=== PATIENT | male | born 1980 | race Caucasian/White ===

== ENCOUNTER 2017-08-30 11:16 | Inpatient (IN) | payer SELFPAY ==
[2017-08-30 12:39] LABS: ABSOLUTE BASOPHILS # (AUTO) 0.1 10^3/uL (0.0-0.2); ABSOLUTE EOSINOPHILS # (AUTO) 0.3 10^3/uL (0.0-0.6); ABSOLUTE LYMPHOCYTES (AUTO) 1.3 10^3/uL (0.5-4.7); ABSOLUTE MONOCYTES (AUTO) 0.8 10^3/uL (0.1-1.4); ABSOLUTE NEUT (AUTO) 9.3 10^3/uL (1.7-8.2); BASOPHILS % (AUTO) 0.6 % (0-2); EOSINOPHILS % (AUTO) 2.2 % (0-6); HEMATOCRIT 30.5 % (37.9-51.0); HEMOGLOBIN 10.2 g/dL (13.5-17.0); LYMPHOCYTES % (AUTO) 10.9 % (13-45); MEAN CORPUSCULAR HEMOGLOBIN 29.7 pg (27.0-33.4); MEAN CORPUSCULAR HGB CONC 33.4 g/dL (32.0-36.0); MEAN CORPUSCULAR VOLUME 89 fl (80-97); MONOCYTES % (AUTO) 6.9 % (3-13); PLATELET COUNT 431 10^3/uL (150-450); RED BLOOD COUNT 3.43 10^6/uL (4.35-5.55); RED CELL DISTRIBUTION WIDTH 13.4 % (11.5-14.0); SEGMENTED NEUTROPHILS % (AUTO) 79.4 % (42-78); TOTAL CELLS COUNTED % (AUTO) 100 %; WHITE BLOOD COUNT 11.7 10^3/uL (4.0-10.5)
--- NOTE | 2017-08-30 13:11 | RADIOLOGY REPORT (SQ) ---
EXAM DESCRIPTION: FOOT RIGHT COMPLETE COMPLETED DATE/TIME: 08/30/2017 12:52 pm REASON FOR STUDY: swelling pain COMPARISON: None. NUMBER OF VIEWS: Three views. TECHNIQUE: AP, lateral and oblique radiographic images acquired of the right foot. LIMITATIONS: None. FINDINGS: MINERALIZATION: Normal. BONES: There is a transverse fracture of the mid 5th metatarsal. There is cortical irregularity invo lving the proximal ends of the 2nd 3rd and 4th metatarsal suspicious for fractures. JOINTS: No effusions. SOFT TISSUES: No soft tissue swelling. No foreign body. OTHER: No other significant finding. IMPRESSION: Transverse fracture of the mid 5th metatarsal. There is cortical irregularity involving the proximal ends of the 2nd 3rd and 4th metatarsal suspicious for fractures. Clinical correlation is recommended. Other findings as noted above. TECHNICAL DOCUMENTATION: JOB ID: [id number] [employer]- All Rights Reserved Reading location - IP/workstation name: [email or web address]
[2017-08-30 14:17] LABS: ANION GAP 15 (5-19); BLOOD UREA NITROGEN 40 mg/dL (7-20); CALCIUM 9.3 mg/dL (8.4-10.2); CARBON DIOXIDE 16 mmol/L (22-30); CHLORIDE 110 mmol/L (98-107); GLUCOSE 140 mg/dL (75-110); SODIUM 140.7 mmol/L (137-145); URIC ACID 5.7 mg/dL (3.5-8.5)
[2017-08-30 14:23] LABS: POTASSIUM 7.5 mmol/L (3.6-5.0)
[2017-08-30] MEDS ORDERED: INSULIN REG, HUMAN 100 UNIT/ML 3 ML VIAL (PYX) IV ONE (14:24)
[2017-08-30] MEDS ORDERED: CALCIUM GLUCONATE 1000 MG/10 ML INJ IV ONE ×2 (14:24→21:00)
[2017-08-30] MEDS ORDERED: DEXTROSE 50%-WATER 25 GM/50 ML DISP.SYRIN IV ONE ×2 (14:24→16:35)
[2017-08-30] MEDS ORDERED: NORMAL SALINE 1000 ML 1,000 ML IV PRN (14:24)
[2017-08-30] MEDS ORDERED: ALBUTEROL SULFATE 0.083% NEB 2.5 MG/3 ML AMPUL NEB ONE ×2 (14:25→21:00)
--- NOTE | 2017-08-30 14:54 | EKG REPORT ---
SEVERITY:- NORMAL ECG - SINUS RHYTHM : Confirmed by: Osvaldo Navas MD 30-Aug-2017 14:54:14
[2017-08-30] MEDS ORDERED: SODIUM POLYSTYRENE SULFONATE 15 GM/60 ML PO ONE ×2 (14:58→21:00)
[2017-08-30] MEDS ORDERED: SODIUM BICARBONATE 8.4% INJ 50 MEQ/50 ML DISP.SYRIN IV ONE (14:58)
--- NOTE | 2017-08-30 15:06 | ER Document Report ---
ED General - General Chief Complaint: Leg Swelling Stated Complaint: RIGHT LEG SWELLING Time Seen by Provider: 08/30/17 11:59 TRAVEL OUTSIDE OF THE [place] IN LAST 30 DAYS: No - HPI Patient complains to provider of: Right leg pain right foot pain Notes: Patient coming in for evaluation of right leg pain right foot pain. Patient states approximately 1/2-2 weeks ago patient felt pop in his right foot had swelling to his leg was seen at another local hospital had a Doppler performed and was told this was negative however pain and swelling continued therefore came to the ER today for further evaluation. Patient states has a history of diabetes and hypertension currently takes Coreg lisinopril Flomax and hydrochlorothiazide. Patient also states he is on Lantus and Humalog. Patient states his primary care is the clinic in [facility]. Patient denies any recent travel denies any fevers chills nausea vomiting diarrhea. - Related Data Allergies/Adverse Reactions: shellfish derived Allergy (Verified 08/30/17 11:17) Past Medical History - Social History Smoking Status: Former Smoker Frequency of alcohol use: None Drug Abuse: None Family History: Reviewed & Not Pertinent Patient has suicidal ideation: No Patient has homicidal ideation: No - Past Medical History Cardiac Medical History: Reports: Hx Hypertension Endocrine Medical History: Reports: Hx Diabetes Mellitus Type 1 Renal/ Medical History: Denies: Hx Peritoneal Dialysis Past Surgical History: Reports: Hx Orthopedic Surgery - jaw Review of Systems - Review of Systems Constitutional: No symptoms reported EENT: No symptoms reported Cardiovascular: No symptoms reported Respiratory: No symptoms reported Gastrointestinal: No symptoms reported Genitourinary: No symptoms reported Male Genitourinary: No symptoms reported Musculoskeletal: Leg swelling, Other - Right foot pain Skin: No symptoms reported Hematologic/Lymphatic: No symptoms reported Neurological/Psychological: No symptoms reported -: Yes All other systems reviewed and negative Physical Exam - Vital signs Vitals: Temp Pulse Resp BP Pulse Ox 98.4 F 87 20 132/76 H 97 08/30/17 11:20 08/30/17 11:20 08/30/17 11:20 08/30/17 11:20 08/30/17 11:20 Interpretation: Normal - General General appearance: Appears well, Alert - HEENT Head: Normocephalic, Atraumatic Eyes: Normal Pupils: PERRL - Respiratory Respiratory status: No respiratory distress Chest status: Nontender Breath sounds: Normal Chest palpation: Normal - Cardiovascular Rhythm: Regular Heart sounds: Normal auscultation Murmur: No - Abdominal Inspection: Normal Distension: No distension Bowel sounds: Normal Tenderness: Nontender Organomegaly: No organomegaly - Back Back: Normal, Nontender - Extremities General upper extremity: Normal inspection, Nontender, Normal color, Normal ROM , Normal temperature General lower extremity: Normal inspection, Nontender, Edema - There is swelling to the right leg greater than the left 1-2+ pitting edema in the right leg there is tenderness to palpation of the first MCP joint along with tenderness to palpation of the base of the fifth. Mild redness to the dorsum of the foot. This is not warm, Normal color, Normal ROM, Normal temperature - Neurological Neuro grossly intact: Yes Cognition: Normal Orientation: AAOx4 [place] Coma Scale Eye Opening: Spontaneous [place] Coma Scale Verbal: Oriented Mikal Coma Scale Motor: Obeys Commands Mikal Coma Scale Total: 15 Speech: Normal Motor strength normal: LUE, RUE, LLE, RLE Sensory: Normal - Psychological Associated symptoms: Normal affect, Normal mood - Skin Skin Temperature: Warm Skin Moisture: Dry Skin Color: Normal Course - Re-evaluation Re-evalutation: 08/30/17 20:22 X-rays of the patient's foot does show signs of fracture of the fifth metatarsal. Patient was placed in the postop shoe. Laboratory studies had to be repeated because of elevated potassium which confirmed a potassium of 7.8. Patient also has some renal sufficiency. Upon further questioning the patient patient does state a history of renal sufficiency and supposed to follow-up with a nursing assistants teacher. EKG was then performed hyperkalemia protocol was initiated. EKG desists from slightly peak T waves. Patient otherwise is able to urinate here we did start Kayexalate upon request of the nursing assistants teacher. To get the patient bicarb along with IV fluids insulin glucose albuterol and calcium. Refer to the hospitalist for further evaluation and admission. - Vital Signs Vital signs: Temp Pulse Resp BP Pulse Ox 98.1 F 102 H 18 138/86 H 99 08/30/17 19:52 08/30/17 19:52 08/30/17 19:52 08/30/17 19:52 08/30/17 19:52 - Laboratory Result Diagrams: 08/30/17 12:20 08/30/17 19:27 Laboratory results interpreted by me: 08/30/17 08/30/17 08/30/17 12:20 13:38 13:38 WBC 11.7 H RBC 3.43 L Hgb 10.2 L Hct 30.5 L Seg Neutrophils % 79.4 H Lymphocytes % 10.9 L Absolute Neutrophils 9.3 H Potassium 7.5 H* Chloride 110 H Carbon Dioxide 16 L BUN 40 H Creatinine 2.02 H Est GFR ( Amer) 46 L Est GFR (Non-Af Amer) 38 L Glucose 140 H Creatine Kinase 738 H Critical Care Note - Critical Care Note Total time excluding time spent on procedures (mins): 35 Discharge - Discharge Clinical Impression: Hyperkalemia, Dehydration, Fracture of 5th metatarsal Diabetes Qualifiers: Diabetes mellitus type: type 1 Condition: Good Disposition: ADMITTED INPATIENT Admitting Provider: [facility] Admitted: [facility]
[2017-08-30] MEDS ORDERED: MAGNESIUM HYDROXIDE SUSP 30 ML UDCUP PO PRN (15:23)
[2017-08-30] MEDS ORDERED: ONDANSETRON 4 MG TAB.RAPDIS PO PRN (15:23)
[2017-08-30 15:52] LABS: ANION GAP 14 (5-19); BLOOD UREA NITROGEN 37 mg/dL (7-20); CALCIUM 9.1 mg/dL (8.4-10.2); CARBON DIOXIDE 16 mmol/L (22-30); CHLORIDE 112 mmol/L (98-107); GLUCOSE 93 mg/dL (75-110); SODIUM 142.3 mmol/L (137-145)
[2017-08-30 16:00] LABS: POTASSIUM 5.8 mmol/L (3.6-5.0)
[2017-08-30] MEDS ORDERED: 1/2 NORMAL SALINE 1,000 ML with SODIUM BICARBONATE 100 MEQ IV PRN ×2 (16:19)
--- NOTE | 2017-08-30 16:32 | PDOC H&P ---
History of Present Illness Admission Date/PCP: 08/30/17 15:07 NO LOCALMD Patient complains of: Right foot pain and swelling History of Present Illness: BRYCE GONZALEZ is a 36 year old male with past medical history of diabetes mellitus type 1, essential hypertension, and chronic kidney disease stage 3; who presents to [facility] ED with complaints of right foot pain and swelling. He was found on xray to have a 5th metatarsal fracture. He denies any injuries to the foot. He said he has been doing alot of walking with his new job. He had basic labs drawn as well which showed his potassium to be elevated at 7.5. His bun/creatinine were elevated at 40/2.0. He denies any recent nausea, vomiting or diarrhea. He states his glucose has not been markedly elevated. He states he probably has not been drinking enough water with his new job. He is followed by the [facility] in [place]. They told him at his last visit that he would need to be referred to a special delivery clerk soon. He has no complaints at the present time other than the right foot pain. Past Medical History Cardiac Medical History: Reports: Hypertension Pulmonary Medical History: Reports: None EENT Medical History: Reports: None Neurological Medical History: Reports: None Endocrine Medical History: Reports: Diabetes Mellitus Type 1 Renal/ Medical History: Reports: Chronic Kidney Disease Malignancy Medical History: Reports: None GI Medical History: Reports: None Musculoskeltal Medical History: Reports: None Skin Medical History: Reports: None Psychiatric Medical History: Reports: None Traumatic Medical History: Reports: None Hematology: Reports: None Infectious Medical History: Reports: None Past Surgical History Past Surgical History: Reports: Orthopedic Surgery - jaw Social History Information Source: Patient Lives with: Alone Smoking Status: Former Smoker Number of Years Smokin Frequency of Alcohol Use: None Hx Recreational Drug Use: No Hx Prescription Drug Abuse: No - Advance Directive Resuscitation Status: Full Code Family History Family History: CAD, DM Parental Family History Reviewed: Yes Children Family History Reviewed: NA Sibling(s) Family History Reviewed.: Yes Medication/Allergy Allergies/Adverse Reactions: shellfish derived Allergy (Verified 08/30/17 11:17) Review of Systems Constitutional: ABSENT: chills, fever(s), headache(s), weight gain, weight loss Eyes: ABSENT: visual disturbances Ears: ABSENT: hearing changes Cardiovascular: ABSENT: chest pain, dyspnea on exertion, edema, orthropnea, palpitations Respiratory: ABSENT: cough, hemoptysis Gastrointestinal: ABSENT: abdominal pain, constipation, diarrhea, hematemesis, hematochezia, nausea, vomiting Genitourinary: ABSENT: dysuria, hematuria Musculoskeletal: PRESENT: deformity - right foot, joint swelling Integumentary: PRESENT: wounds, other - multiple scars on bilateral forerarms, self inflicted Neurological: PRESENT: abnormal gait, numbness, paresthesias - bilateral feet and lower legs Psychiatric: ABSENT: anxiety, depression, homidical ideation, suicidal ideation Endocrine: ABSENT: cold intolerance, heat intolerance, polydipsia, polyuria Hematologic/Lymphatic: ABSENT: easy bleeding, easy bruising Physical Exam Vital Signs: Temp Pulse Resp BP Pulse Ox 98.4 F 87 20 132/76 H 97 08/30/17 11:20 08/30/17 11:20 08/30/17 11:20 08/30/17 11:20 08/30/17 11:20 General appearance: PRESENT: no acute distress, obese, well-developed, well- nourished Head exam: PRESENT: atraumatic, normocephalic Eye exam: PRESENT: conjunctiva pink, EOMI, PERRLA. ABSENT: scleral icterus Ear exam: PRESENT: normal external ear exam Mouth exam: PRESENT: moist, neck supple, tongue midline Teeth exam: PRESENT: poor dentation Neck exam: ABSENT: carotid bruit, JVD, lymphadenopathy, thyromegaly Respiratory exam: PRESENT: clear to auscultation eliezer. ABSENT: rales, rhonchi, wheezes Cardiovascular exam: PRESENT: RRR. ABSENT: diastolic murmur, rubs, systolic murmur Pulses: PRESENT: normal dorsalis pedis pul Vascular exam: PRESENT: normal capillary refill GI/Abdominal exam: PRESENT: normal bowel sounds, soft. ABSENT: distended, guarding, mass, organolmegaly, rebound, tenderness Rectal exam: PRESENT: deferred Extremities exam: PRESENT: full ROM, other - multiple healed scars bilateral forearms. ABSENT: calf tenderness, clubbing, pedal edema Musculoskeletal exam: PRESENT: ambulatory, full ROM, tenderness, other - right foot swollen and tender lateral dorsal foot Neurological exam: PRESENT: alert, awake, oriented to person, oriented to place , oriented to time, oriented to situation, CN II-XII grossly intact. ABSENT: motor sensory deficit Psychiatric exam: PRESENT: anxious Skin exam: PRESENT: dry, intact, warm, other - scars to bilateral forearms Results Laboratory Results: 08/30/17 15:30 08/30/17 15:30 Sodium 142.3 Potassium 5.8 H D Chloride 112 H Carbon Dioxide 16 L Anion Gap 14 BUN 37 H Creatinine 1.72 H Est GFR ( Amer) 55 L Est GFR (Non-Af Amer) 45 L Glucose 93 Calcium 9.1 Impressions: Foot X-Ray 08/30/17 12:17 IMPRESSION: Transverse fracture of the mid 5th metatarsal. There is cortical irregularity involving the proximal ends of the 2nd 3rd and 4th metatarsal suspicious for fractures. Clinical correlation is recommended. Other findings as noted above. Assessment & Plan - Diagnosis (1) Hyperkalemia Is this a current diagnosis for this admission?: Yes Plan: Patient has been treated with D50/insulin IV, calcium gluconate, albuterol, sodium bicarbonate 1 gm IV, and kayexylate po and 2000 cc of normal saline by ED provider. Will recheck BMP now and q4h until potassium normal. 12 lead ecg shows no significant findings (2) MELVIN (acute kidney injury) Is this a current diagnosis for this admission?: Yes Plan: Will rehydrate with IV fluid avoid nephrotoxic medications (3) Metabolic acidosis Is this a current diagnosis for this admission?: Yes Plan: Will hydrate with one bag of 1/2ns with 2 amps of bicarb at 125cc/hr (5) Fracture of 5th metatarsal Is this a current diagnosis for this admission?: Yes (6) Diabetes Qualifiers: Diabetes mellitus type: type 1 Is this a current diagnosis for this admission?: Yes Plan: Continue home insulin and sliding scale coverage - Time Time Spent: 50 to 70 Minutes Critical Time spent with patient: 25-34 minutes Medications reviewed and adjusted accordingly: Yes - Inpatient Certification Based on my medical assessment, after consideration of the patient's comorbidities, presenting symptoms, or acuity I expect that the services needed warrant INPATIENT care.: Yes Medical Necessity: Significant Comorbidiites Make Outpatient Treatment Too Risky , Need Close Monitoring Due to Risk of Patient Decompensation, Need For IV Fluids, Need For Continuous Telemetry Monitoring
[2017-08-30] MEDS ORDERED: DEXTROSE 40% GEL 15 GM TUBE PO PRN ×2 (16:33)
[2017-08-30] MEDS ORDERED: GLUCAGON,HUMAN RECOMB 1 MG INJ IM PRN (16:33)
[2017-08-30] MEDS ORDERED: DEXTROSE 50%-WATER 25 GM/50 ML DISP.SYRIN IV PRN ×2 (16:33)
[2017-08-30 17:22] LABS: ARTERIAL BLOOD BASE EXCESS -5.5 mmol/L; ARTERIAL BLOOD H2CO3 1.16 mmol/L (1.05-1.35); ARTERIAL BLOOD HCO3 19.9 mmol/L (20-26); ARTERIAL BLOOD O2 SATURATION 95.2 % (94-98); ARTERIAL BLOOD PCO2 38.7 mmHg (35-45); ARTERIAL BLOOD PH 7.33 (7.35-7.45); ARTERIAL BLOOD PO2 80.6 mmHg (80-100); ARTERIAL BLOOD TOTAL CO2 21.1 mmol/L (23-27)
[2017-08-30 17:23] LABS: ARTERIAL BLOOD FIO2 2L
[2017-08-30] MEDS ORDERED: ENOXAPARIN SODIUM INJ 30 MG/0.3 ML DISP.SYRIN SUBCUT ONE (18:00)
--- NOTE | 2017-08-30 18:57 | PDOC CONSULTATION ---
Consultation Consult Date: 08/30/17 Attending physician:: LEROY OZUNA Consult reason:: I was asked to see the patient because of hyperkalemia and renal failure. History of Present Illness Admission Date/PCP: 08/30/17 15:07 NO LOCALHI History of Present Illness: BRYCE GONZALEZ is a 36 year old male with history of type 1 diabetes mellitus and hypertension who presented in the emergency room for right foot pain and swelling. Patient said that about 1-2 weeks ago while he was leaving out of [employer] and walking around in the parking lot towards his vehicle he heard a pop and since then he started having pain on his right foot. Pain was tolerable so he did not seek any medical attention. 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 Initial evaluation of the foot showed fifth metatarsal fracture. He was also found to have elevated potassium of 7.5, BUN of 40, creatinine of 2.02 and bicarbonate of 16. We do not have any available records here in the hospital. Patient told me that he is aware that he has abnormal kidney function since he was hospitalized a year ago at [facility]. He follows up at [facility] and he said that his doctor there is preparing to refer him to a commercial loan analyst. He does not know or has no idea what his kidney function is but at least now that it is abnormal. Patient otherwise feels fine aside from the right foot pain and swelling. He denies any nausea, vomiting, or diarrhea. He tells me that he is eating good and drinking fluids okay. He denies any chest pains, shortness of breath, fever nor chills but have dry cough. He denies any history of hepatitis B nurse he her HIV. He denies any history of kidney stones. He does not have any leg swelling at this time. In the emergency room he was given 2 L of IV fluids and now currently started on the bicarb drip. He was also given the cocktail for hyperkalemia including albuterol nebulization, an amp of calcium gluconate, an amp of D50 50 with insulin, an hour of sodium bicarbonate and Kayexalate 30 g was ordered. The ER attending called me and I recommended the above plus starting the patient on a bicarb drip which the patient is currently on. Past Medical History Cardiac Medical History: Reports: Hypertension-primary Endocrine Medical History: Reports: Diabetes Mellitus Type 1 Renal/ Medical History: Reports: Other - Chronic kidney disease of unknown baseline Past Surgical History Past Surgical History: Reports: Orthopedic Surgery - jaw Social History Information Source: Patient Lives with: Alone Smoking Status: Former Smoker Number of Years Smokin Frequency of Alcohol Use: None Hx Recreational Drug Use: No Hx Prescription Drug Abuse: No - Advance Directive Resuscitation Status: Full Code Family History Family History: CAD - Mother of MO in 2001, father also had an MO in 2004 he still living, Hypertension - Father Parental Family History Reviewed: Yes Children Family History Reviewed: NA Sibling(s) Family History Reviewed.: Yes Medication/Allergy Home Medications: Gabapentin [Neurontin 300 mg Capsule] 600 mg PO QHS 08/30/17 Insulin Glargine,Hum.rec.anlog [Lantus] 20 units SQ [id number] 08/30/17 Insulin Lispro [Humalog Insulin (Lispro) 100 unit/mL] 0 unit SQ .SLIDING SCALE 08/30/17 Lisinopril [Prinivil 10 mg Tablet] 10 mg PO QHS 08/30/17 Allergies/Adverse Reactions: shellfish derived Allergy (Verified 08/30/17 11:17) Review of Systems All systems: reviewed and no additional remarkable complaints except as stated Review of Systems: Constitutional: ABSENT: chills, fatigue, fever(s), headache(s), weight gain, weight loss Eyes: ABSENT: visual disturbances Ears: ABSENT: hearing changes Cardiovascular: ABSENT: chest pain, dyspnea on exertion, edema, orthropnea, palpitations Respiratory: ABSENT: cough, dyspnea, hemoptysis Gastrointestinal: ABSENT: abdominal pain, constipation, diarrhea, hematemesis, hematochezia, nausea, vomiting Genitourinary: ABSENT: dysuria, hematuria Musculoskeletal: ABSENT: joint swelling; admits right foot pain and swelling Integumentary: ABSENT: rash, wounds Neurological: ABSENT: abnormal gait, abnormal speech, confusion, dizziness, focal weakness, numbness, syncope Psychiatric: ABSENT: anxiety, depression Endocrine: ABSENT: cold intolerance, heat intolerance, polydipsia, polyuria Hematologic/Lymphatic: ABSENT: easy bleeding, easy bruising, lymphadenopathy Physical Exam Vital Signs: Temp Pulse Resp BP Pulse Ox 98.4 F 91 20 134/71 H 98 08/30/17 17:46 08/30/17 17:46 08/30/17 17:46 08/30/17 17:46 08/30/17 17:46 Intake & Output 08/29/17 08/30/17 08/31/17 06:59 06:59 06:59 Intake Total 472 Balance 472 Weight 108.2 kg Exam: General appearance: no acute distress, cooperative, well-developed, well- nourished Head exam: PRESENT: atraumatic, normocephalic Eye exam: PRESENT: Conjunctiva slightly pale, EOMI, PERRLA. ABSENT: conjunctival injection, scleral icterus Mouth exam: PRESENT: moist, neck supple, tongue midline Neck exam: PRESENT: full ROM. ABSENT: carotid bruit, JVD, lymphadenopathy, thyromegaly Respiratory exam: PRESENT: clear to auscultation bilaterally. ABSENT: rales, rhonchi, stridor, wheezes Cardiovascular exam: PRESENT: RRR, +S1, +S2. ABSENT: systolic murmur Pulses: PRESENT: normal radial pulses, normal dorsalis pedis pulses GI/Abdominal exam: PRESENT: normal bowel sounds, soft. ABSENT: guarding, mass, tenderness Rectal exam: deferred Extremities exam: PRESENT: full ROM. ABSENT: calf tenderness, pedal edema Musculoskeletal: PRESENT: full ROM. Right foot tenderness and mild swelling ABSENT: deformity Neurological exam: PRESENT: alert, Awake, Oriented to person, Oriented to place , Oriented to time, reflexes normal, CN II-XII grossly intact. ABSENT: motor sensory deficit Psychiatric exam: PRESENT: appropriate affect, normal mood. ABSENT: homicidal ideation, suicidal ideation Skin exam: PRESENT: intact, dry, warm. ABSENT: rash Results Laboratory Results: 08/30/17 15:30 08/30/17 08/30/17 15:30 17:00 Carbonic Acid 1.16 HCO3/H2CO3 Ratio 17:1 ABG pH 7.33 L ABG pCO2 38.7 ABG pO2 80.6 ABG HCO3 19.9 L ABG O2 Saturation 95.2 ABG Base Excess -5.5 FiO2 2L Sodium 142.3 Potassium 5.8 H D Chloride 112 H Carbon Dioxide 16 L Anion Gap 14 BUN 37 H Creatinine 1.72 H Est GFR ( Amer) 55 L Est GFR (Non-Af Amer) 45 L Glucose 93 Calcium 9.1 Impressions: Foot X-Ray 08/30/17 12:17 IMPRESSION: Transverse fracture of the mid 5th metatarsal. There is cortical irregularity involving the proximal ends of the 2nd 3rd and 4th metatarsal suspicious for fractures. Clinical correlation is recommended. Other findings as noted above. Assessment & Plan - Diagnosis (1) MELVIN (acute kidney injury) Is this a current diagnosis for this admission?: Yes Plan: Baseline kidney function is unknown but from history it seems like he could have an underlying chronic kidney disease likely due to diabetes. Acute worsening could be secondary to acute prerenal azotemia due to possible relative volume depletion or dehydration. Initial IV fluid hydration seems to have improved her kidney function slightly. We will check urinalysis and continue to monitor the patient's kidney function. Patient does not need any urgent renal replacement therapy. Check kidney ultrasound. Continue IV fluid hydration. (2) Hyperkalemia Is this a current diagnosis for this admission?: Yes Plan: This could be secondary to AK I on possible chronic kidney disease, lisinopril and possibly need to consider RTA type IV in this diabetic patient. Current potassium seems to be slowly improving. The bicarb drip will help this. (3) Metabolic acidosis Is this a current diagnosis for this admission?: Yes Plan: This is likely secondary to AK I on CKD with consideration of RTA type IV with associated hyperkalemia. We will get urine electrolytes. Continue current bicarb drip. (4) Dehydration Is this a current diagnosis for this admission?: Yes (5) Diabetes Qualifiers: Diabetes mellitus type: type 1 Is this a current diagnosis for this admission?: Yes (6) Fracture of 5th metatarsal Is this a current diagnosis for this admission?: Yes (7) Hypertension Is this a current diagnosis for this admission?: Yes (8) Anemia Is this a current diagnosis for this admission?: Yes - Notes Notes: Thank you very much for this consultation. I will follow the patient with you. - Time Time Spent: 50 to 70 Minutes
[2017-08-30 19:59] LABS: ANION GAP 11 (5-19); BLOOD UREA NITROGEN 36 mg/dL (7-20); CALCIUM 8.8 mg/dL (8.4-10.2); CARBON DIOXIDE 18 mmol/L (22-30); CHLORIDE 109 mmol/L (98-107); GLUCOSE 316 mg/dL (75-110); SODIUM 138.1 mmol/L (137-145)
[2017-08-30 20:08] LABS: POTASSIUM 7.3 mmol/L (3.6-5.0)
[2017-08-30] MEDS ORDERED: NORMAL SALINE 1000 ML 1,000 ML IV SCH (20:45)
[2017-08-30 20:57] LABS: APPEARANCE,URINE CLEAR; BILIRUBIN,URINE NEGATIVE (NEGATIVE); COLOR,URINE STRAW; GLUCOSE, URINE >=500 mg/dL (NEGATIVE); KETONES,URINE NEGATIVE (NEGATIVE); LEUKOCYTE ESTERASE,URINE NEGATIVE (NEGATIVE); NITRITE,URINE NEGATIVE (NEGATIVE); PROTEIN,URINE 100 mg/dL (NEGATIVE); URINE SPECIFIC GRAVITY 1.008; UROBILINOGEN,URINE NEGATIVE mg/dL (<2.0)
[2017-08-30] MEDS ORDERED: INSULIN REG, HUMAN 100 UNIT/ML 3 ML VIAL (PYX) SUBCUT ONE (21:00)
[2017-08-30] MEDS: ACETAMINOPHEN 325 MG TABLET PO PRN (21:28)
[2017-08-30] MEDS: GABAPENTIN 300 MG CAPSULE PO SCH (21:29)
[2017-08-30] MEDS ORDERED: LACTULOSE SYRUP 20 GM/30 ML UDCUP PR ONE (21:30)
[2017-08-30] MEDS: INSULIN LISPRO 100 UNIT/ML 3 ML VIAL SUBCUT PRN (22:55)
[2017-08-31 00:05] LABS: ANION GAP 10 (5-19); BLOOD UREA NITROGEN 36 mg/dL (7-20); CALCIUM 9.1 mg/dL (8.4-10.2); CARBON DIOXIDE 21 mmol/L (22-30); CHLORIDE 108 mmol/L (98-107); GLUCOSE 307 mg/dL (75-110); SODIUM 139.2 mmol/L (137-145)
[2017-08-31 00:09] LABS: POTASSIUM 6.5 mmol/L (3.6-5.0)
[2017-08-31 06:15] LABS: ABSOLUTE BASOPHILS # (AUTO) 0.1 10^3/uL (0.0-0.2); ABSOLUTE EOSINOPHILS # (AUTO) 0.1 10^3/uL (0.0-0.6); ABSOLUTE LYMPHOCYTES (AUTO) 0.9 10^3/uL (0.5-4.7); ABSOLUTE MONOCYTES (AUTO) 0.6 10^3/uL (0.1-1.4); ABSOLUTE NEUT (AUTO) 7.5 10^3/uL (1.7-8.2); BASOPHILS % (AUTO) 0.7 % (0-2); EOSINOPHILS % (AUTO) 1.1 % (0-6); HEMATOCRIT 28.8 % (37.9-51.0); HEMOGLOBIN 9.6 g/dL (13.5-17.0); LYMPHOCYTES % (AUTO) 9.8 % (13-45); MEAN CORPUSCULAR HEMOGLOBIN 29.7 pg (27.0-33.4); MEAN CORPUSCULAR HGB CONC 33.4 g/dL (32.0-36.0); MEAN CORPUSCULAR VOLUME 89 fl (80-97); MONOCYTES % (AUTO) 6.2 % (3-13); PLATELET COUNT 381 10^3/uL (150-450); RED BLOOD COUNT 3.24 10^6/uL (4.35-5.55); RED CELL DISTRIBUTION WIDTH 13.6 % (11.5-14.0); SEGMENTED NEUTROPHILS % (AUTO) 82.2 % (42-78); TOTAL CELLS COUNTED % (AUTO) 100 %; WHITE BLOOD COUNT 9.1 10^3/uL (4.0-10.5)
--- NOTE | 2017-08-31 07:52 | EKG REPORT ---
SEVERITY:- BORDERLINE ECG - SINUS RHYTHM BORDERLINE R WAVE PROGRESSION, ANTERIOR LEADS , LIKELY DUE TO POOR LEAD PLACEMENT. : Confirmed by: Osvaldo Navas MD 31-Aug-2017 07:51:25
--- NOTE | 2017-08-31 09:11 | RADIOLOGY REPORT (SQ) ---
EXAM DESCRIPTION: U/S RETROPERITON (RENAL/AORTA) COMPLETED DATE/TIME: 08/31/2017 7:19 am REASON FOR STUDY: MELVIN/CKD COMPARISON: None. TECHNIQUE: Dynamic and static grayscale images acquired of the kidneys and bladder and recorded on P ACS. Additional selected color Doppler and spectral images recorded. LIMITATIONS: None. FINDINGS: RIGHT KIDNEY: Normal size. Normal echogenicity. No solid or suspicious masses. No hydronep hrosis. No calcifications. LEFT KIDNEY: Normal size. Normal echogenicity. No solid or suspicious masses. No hydronephrosis. No calcifications. BLADDER: No masses. OTHER FINDINGS: No other significant finding. IMPRESSION: NORMAL RENAL AND BLADDER ULTRASOUND. TECHNICAL DOCUMENTATION: JOB ID: [id number] [employer]- All Rights Reserved Reading location - IP/workstation name: [email or web address]
[2017-08-31] MEDS: INSULIN GLARGINE,HUM.REC.ANLOG 300 UNIT/3 ML INSULN.PEN SUBCUT SCH (09:43)
[2017-08-31] MEDS: ENOXAPARIN SODIUM INJ 30 MG/0.3 ML DISP.SYRIN SUBCUT SCH (09:43)
[2017-08-31 10:50] LABS: ALBUMIN 3.5 g/dL (3.5-5.0); ANION GAP 13 (5-19); BLOOD UREA NITROGEN 34 mg/dL (7-20); CALCIUM 8.9 mg/dL (8.4-10.2); CARBON DIOXIDE 21 mmol/L (22-30); CHLORIDE 107 mmol/L (98-107); PHOSPHORUS 4.3 mg/dL (2.5-4.5); SODIUM 140.5 mmol/L (137-145)
[2017-08-31 10:59] LABS: GLUCOSE 419 mg/dL (75-110); POTASSIUM 6.5 mmol/L (3.6-5.0)
[2017-08-31] MEDS ORDERED: SODIUM POLYSTYRENE SULFONATE 15 GM/60 ML PO ONE ×2 (11:04→19:00)
[2017-08-31] MEDS ORDERED: NORMAL SALINE 1000 ML 1,000 ML IV PRN (11:06)
[2017-08-31] MEDS: INSULIN LISPRO 100 UNIT/ML 3 ML VIAL SUBCUT PRN ×3 (11:33→17:53)
[2017-08-31 13:32] LABS: ABSOLUTE RETICS # 0.031 10^6/uL (0.028-0.122); RETICULOCYTE COUNT (AUTO) 0.96 % (0.66-2.85)
--- NOTE | 2017-08-31 13:53 | PDOC PROGRESS REPORT ---
Subjective Progress Note for:: 08/31/17 Subjective:: No Current complaints. Rather anxious for discharge. Reason For Visit: HYPERKALEMIA,METABOLIC ACIDOSIS Physical Exam Vital Signs: Temp Pulse Resp BP Pulse Ox 98.4 F 104 H 18 155/98 H 98 08/31/17 11:28 08/31/17 11:28 08/31/17 11:28 08/31/17 11:28 08/31/17 11:28 Intake & Output 08/30/17 08/31/17 09/01/17 05:59 05:59 05:59 Intake Total 2322 350 Output Total 500 500 Balance 1822 -150 Weight 238 lb 8.642 oz 221 lb 12.56 oz General appearance: PRESENT: no acute distress Respiratory exam: PRESENT: clear to auscultation eliezer Cardiovascular exam: PRESENT: RRR GI/Abdominal exam: PRESENT: soft Extremities exam: PRESENT: tenderness - Right foot is fairly tender as expected over the area of the fracture Neurological exam: PRESENT: alert, other - Decreased sensation to light touch below the knees Psychiatric exam: PRESENT: appropriate affect Skin exam: PRESENT: warm Results Laboratory Results: 08/31/17 05:06 08/31/17 10:10 08/30/17 08/30/17 08/30/17 15:30 17:00 19:27 WBC RBC Hgb Hct MCV MCH MCHC RDW Plt Count Seg Neutrophils % Lymphocytes % Monocytes % Eosinophils % Basophils % Absolute Neutrophils Absolute Lymphocytes Absolute Monocytes Absolute Eosinophils Absolute Basophils Carbonic Acid 1.16 HCO3/H2CO3 Ratio 17:1 ABG pH 7.33 L ABG pCO2 38.7 ABG pO2 80.6 ABG HCO3 19.9 L ABG O2 Saturation 95.2 ABG Base Excess -5.5 FiO2 2L Sodium 142.3 138.1 Potassium 5.8 H D 7.3 H* D Chloride 112 H 109 H Carbon Dioxide 16 L 18 L Anion Gap 14 11 BUN 37 H 36 H Creatinine 1.72 H 1.76 H Est GFR ( Amer) 55 L 54 L Est GFR (Non-Af Amer) 45 L 44 L Glucose 93 316 H Calcium 9.1 8.8 Phosphorus Magnesium Albumin Urine Color Urine Appearance Urine pH Ur Specific [place] Urine Protein Urine Glucose (UA) Urine Ketones Urine Blood Urine Nitrite Ur Leukocyte Esterase Urine WBC (Auto) Urine RBC (Auto) 08/30/17 08/30/17 08/31/17 20:30 23:27 05:06 WBC 9.1 RBC 3.24 L Hgb 9.6 L Hct 28.8 L MCV 89 MCH 29.7 MCHC 33.4 RDW 13.6 Plt Count 381 Seg Neutrophils % 82.2 H Lymphocytes % 9.8 L Monocytes % 6.2 Eosinophils % 1.1 Basophils % 0.7 Absolute Neutrophils 7.5 Absolute Lymphocytes 0.9 Absolute Monocytes 0.6 Absolute Eosinophils 0.1 Absolute Basophils 0.1 Carbonic Acid HCO3/H2CO3 Ratio ABG pH ABG pCO2 ABG pO2 ABG HCO3 ABG O2 Saturation ABG Base Excess FiO2 Sodium 139.2 Potassium 6.5 H* Chloride 108 H Carbon Dioxide 21 L Anion Gap 10 BUN 36 H Creatinine 1.83 H Est GFR ( Amer) 51 L Est GFR (Non-Af Amer) 42 L Glucose 307 H Calcium 9.1 Phosphorus Magnesium Albumin Urine Color STRAW Urine Appearance CLEAR Urine pH 5.0 Ur Specific [place] 1.008 Urine Protein 100 H Urine Glucose (UA) >=500 H Urine Ketones NEGATIVE Urine Blood MODERATE H Urine Nitrite NEGATIVE Ur Leukocyte Esterase NEGATIVE Urine WBC (Auto) 1 Urine RBC (Auto) 7 08/31/17 08/31/17 05:06 10:10 WBC RBC Hgb Hct MCV MCH MCHC RDW Plt Count Seg Neutrophils % Lymphocytes % Monocytes % Eosinophils % Basophils % Absolute Neutrophils Absolute Lymphocytes Absolute Monocytes Absolute Eosinophils Absolute Basophils Carbonic Acid HCO3/H2CO3 Ratio ABG pH ABG pCO2 ABG pO2 ABG HCO3 ABG O2 Saturation ABG Base Excess FiO2 Sodium 140.5 Potassium 6.5 H* Chloride 107 Carbon Dioxide 21 L Anion Gap 13 BUN 34 H Creatinine 1.71 H Est GFR ( Amer) 55 L Est GFR (Non-Af Amer) 46 L Glucose 419 H* Calcium 8.9 Phosphorus 4.3 Magnesium 2.1 1.8 Albumin 3.5 Urine Color Urine Appearance Urine pH Ur Specific [place] Urine Protein Urine Glucose (UA) Urine Ketones Urine Blood Urine Nitrite Ur Leukocyte Esterase Urine WBC (Auto) Urine RBC (Auto) 08/31/17 05:06 Creatine Kinase 313 H Impressions: Foot X-Ray 08/30/17 12:17 IMPRESSION: Transverse fracture of the mid 5th metatarsal. There is cortical irregularity involving the proximal ends of the 2nd 3rd and 4th metatarsal suspicious for fractures. Clinical correlation is recommended. Other findings as noted above. Renal Ultrasound 08/31/17 00:00 IMPRESSION: NORMAL RENAL AND BLADDER ULTRASOUND. Assessment & Plan - Diagnosis (1) DM I (diabetes mellitus, type I), uncontrolled Qualifiers: Diabetes mellitus complication status: with unspecified complications Qualified Code(s): E10.8 - Type 1 diabetes mellitus with unspecified complications; E10.65 - Type 1 diabetes mellitus with hyperglycemia; E10.65 - Type 1 diabetes mellitus with hyperglycemia; E10.65 - Type 1 diabetes mellitus with hyperglycemia; E10.65 - Type 1 diabetes mellitus with hyperglycemia Is this a current diagnosis for this admission?: Yes Plan: Unclear at this point whether he has diabetic nephropathy. He certainly has diabetic neuropathy. His glucose control has been very poor and I will continue trying to improve his regimen. (2) MELVIN (acute kidney injury) Is this a current diagnosis for this admission?: Yes Plan: Unknown baseline. Continue hydration (3) Fracture of 5th metatarsal Is this a current diagnosis for this admission?: Yes Plan: Several bones look to be broken. I suspect this is chronic. I will put him in a hard shoe and have him follow-up with orthopedics. (4) Hyperkalemia Is this a current diagnosis for this admission?: Yes Plan: Repeat dose of Kayexalate and recheck this evening (5) Hypertension Is this a current diagnosis for this admission?: Yes Plan: Resume home medications
[2017-08-31] MEDS: OXYCODONE-ACETAMINOPHEN 5-325 MG TABLET PO PRN ×2 (16:38→20:29)
[2017-08-31 17:51] LABS: ALBUMIN 3.6 g/dL (3.5-5.0); ANION GAP 15 (5-19); BLOOD UREA NITROGEN 31 mg/dL (7-20); CALCIUM 9.2 mg/dL (8.4-10.2); CARBON DIOXIDE 21 mmol/L (22-30); CHLORIDE 110 mmol/L (98-107); GLUCOSE 143 mg/dL (75-110); PHOSPHORUS 4.8 mg/dL (2.5-4.5); POTASSIUM 5.6 mmol/L (3.6-5.0); SODIUM 145.8 mmol/L (137-145)
[2017-08-31] MEDS ORDERED: 1/2 NORMAL SALINE 1,000 ML IV PRN (18:04)
--- NOTE | 2017-08-31 19:41 | PDOC PROGRESS REPORT ---
Subjective Progress Note for:: 08/31/17 Subjective:: Patient is doing fine. He is very anxious to go home because he reports that he just started a new job and he does not want to lose it. He is walking using the orthotic shoe. He does not have any other complaints. Reason For Visit: HYPERKALEMIA,METABOLIC ACIDOSIS Physical Exam Vital Signs: Temp Pulse Resp BP Pulse Ox 99.0 F 100 18 151/93 H 97 08/31/17 15:41 08/31/17 15:41 08/31/17 15:41 08/31/17 15:41 08/31/17 15:41 Intake & Output 08/30/17 08/31/17 09/01/17 06:59 06:59 06:59 Intake Total 2672 2673 Output Total 1000 Balance 1672 2673 Weight 100.6 kg Exam: General appearance: PRESENT: no acute distress, cooperative, well-developed, well-nourished Head exam: PRESENT: atraumatic, normocephalic Eye exam: PRESENT: conjunctiva slightly pale, PERRLA. ABSENT: scleral icterus Neck exam: ABSENT: JVD Respiratory exam: PRESENT: Normal breath sounds. ABSENT: crackles, rales, rhonchi, unlabored, wheezes Cardiovascular exam: PRESENT: Regular rate rhythm -+S1, +S2. ABSENT: diastolic murmur, systolic murmur GI/Abdominal exam: PRESENT: normal bowel sounds, soft. ABSENT: guarding, mass, tenderness Extremities exam: ABSENT: No edema Neurological exam: PRESENT: alert, awake, oriented to person, place and time. Skin exam: PRESENT: dry, warm, Results Laboratory Results: 08/31/17 05:06 08/31/17 17:00 08/30/17 08/30/17 08/30/17 19:27 20:30 23:27 WBC RBC Hgb Hct MCV MCH MCHC RDW Plt Count Seg Neutrophils % Lymphocytes % Monocytes % Eosinophils % Basophils % Absolute Neutrophils Absolute Lymphocytes Absolute Monocytes Absolute Eosinophils Absolute Basophils Retic Count (auto) Absolute Retic Sodium 138.1 139.2 Potassium 7.3 H* D 6.5 H* Chloride 109 H 108 H Carbon Dioxide 18 L 21 L Anion Gap 11 10 BUN 36 H 36 H Creatinine 1.76 H 1.83 H Est GFR ( Amer) 54 L 51 L Est GFR (Non-Af Amer) 44 L 42 L Glucose 316 H 307 H Calcium 8.8 9.1 Phosphorus Magnesium Albumin Urine Color STRAW Urine Appearance CLEAR Urine pH 5.0 Ur Specific [place] 1.008 Urine Protein 100 H Urine Glucose (UA) >=500 H Urine Ketones NEGATIVE Urine Blood MODERATE H Urine Nitrite NEGATIVE Ur Leukocyte Esterase NEGATIVE Urine WBC (Auto) 1 Urine RBC (Auto) 7 08/31/17 08/31/17 08/31/17 05:06 05:06 05:06 WBC 9.1 RBC 3.24 L Hgb 9.6 L Hct 28.8 L MCV 89 MCH 29.7 MCHC 33.4 RDW 13.6 Plt Count 381 Seg Neutrophils % 82.2 H Lymphocytes % 9.8 L Monocytes % 6.2 Eosinophils % 1.1 Basophils % 0.7 Absolute Neutrophils 7.5 Absolute Lymphocytes 0.9 Absolute Monocytes 0.6 Absolute Eosinophils 0.1 Absolute Basophils 0.1 Retic Count (auto) 0.96 Absolute Retic 0.031 Sodium Potassium Chloride Carbon Dioxide Anion Gap BUN Creatinine Est GFR ( Amer) Est GFR (Non-Af Amer) Glucose Calcium Phosphorus Magnesium 2.1 Albumin Urine Color Urine Appearance Urine pH Ur Specific [place] Urine Protein Urine Glucose (UA) Urine Ketones Urine Blood Urine Nitrite Ur Leukocyte Esterase Urine WBC (Auto) Urine RBC (Auto) 08/31/17 08/31/17 10:10 17:00 WBC RBC Hgb Hct MCV MCH MCHC RDW Plt Count Seg Neutrophils % Lymphocytes % Monocytes % Eosinophils % Basophils % Absolute Neutrophils Absolute Lymphocytes Absolute Monocytes Absolute Eosinophils Absolute Basophils Retic Count (auto) Absolute Retic Sodium 140.5 145.8 H Potassium 6.5 H* 5.6 H Chloride 107 110 H Carbon Dioxide 21 L 21 L Anion Gap 13 15 BUN 34 H 31 H Creatinine 1.71 H 1.65 H Est GFR ( Amer) 55 L 58 L Est GFR (Non-Af Amer) 46 L 48 L Glucose 419 H* 143 H Calcium 8.9 9.2 Phosphorus 4.3 4.8 H Magnesium 1.8 Albumin 3.5 3.6 Urine Color Urine Appearance Urine pH Ur Specific [place] Urine Protein Urine Glucose (UA) Urine Ketones Urine Blood Urine Nitrite Ur Leukocyte Esterase Urine WBC (Auto) Urine RBC (Auto) 08/31/17 05:06 Creatine Kinase 313 H Impressions: Foot X-Ray 08/30/17 12:17 IMPRESSION: Transverse fracture of the mid 5th metatarsal. There is cortical irregularity involving the proximal ends of the 2nd 3rd and 4th metatarsal suspicious for fractures. Clinical correlation is recommended. Other findings as noted above. Renal Ultrasound 08/31/17 00:00 IMPRESSION: NORMAL RENAL AND BLADDER ULTRASOUND. Assessment & Plan - Diagnosis (1) MELVIN (acute kidney injury) Is this a current diagnosis for this admission?: Yes Plan: This is thought to be secondary to possible prerenal azotemia. Patient's kidney function is only minimally improved after IV fluid hydration for the last 24 hours. This may in fact be his baseline kidney function consistent with chronic kidney disease stage III. This most likely secondary to diabetic nephropathy with proteinuria. (2) Hyperkalemia Is this a current diagnosis for this admission?: Yes Plan: Still elevated. He was given 2 doses of Kayexalate today. Last potassium was 5.6. Still consider possibility of RTA type IV. Urine chloride is still pending. Aside from Kayexalate patient may benefit from maintenance [place]. Patient needs to be followed by a metal pourer. If the patient's potassium tomorrow morning is less than 5.5 I think he can go home from nephrology standpoint. However he really needs to follow-up with the nephrology referral from [facility]. (3) Metabolic acidosis Is this a current diagnosis for this admission?: Yes Plan: Improved with after sodium bicarbonate drip. Again this could be part of RTA type IV. (4) Dehydration Is this a current diagnosis for this admission?: Yes Plan: Improved. (5) Diabetes Qualifiers: Diabetes mellitus type: type 1 Is this a current diagnosis for this admission?: Yes (6) Fracture of 5th metatarsal Is this a current diagnosis for this admission?: Yes (7) Hypertension Is this a current diagnosis for this admission?: Yes (8) Anemia Is this a current diagnosis for this admission?: Yes Plan: Mild decrease in his hemoglobin likely secondary to IV fluid hydration. (9) Hyperphosphatemia Is this a current diagnosis for this admission?: Yes Plan: Needs low phosphorus diet. - Time Time with patient: 15-25 minutes
[2017-08-31] MEDS: CARVEDILOL 6.25 MG TABLET PO SCH (21:46)
[2017-08-31] MEDS: GABAPENTIN 300 MG CAPSULE PO SCH (21:47)
[2017-08-31] MEDS: ACETAMINOPHEN 325 MG TABLET PO PRN (21:48)
[2017-08-31] MEDS ORDERED: LISINOPRIL 10 MG TABLET PO SCH (22:00)
[2017-09-01 06:48] LABS: ALBUMIN 3.3 g/dL (3.5-5.0); ANION GAP 11 (5-19); BLOOD UREA NITROGEN 26 mg/dL (7-20); CALCIUM 8.6 mg/dL (8.4-10.2); CARBON DIOXIDE 22 mmol/L (22-30); CHLORIDE 109 mmol/L (98-107); GLUCOSE 151 mg/dL (75-110); IRON 49.9 ug/dL (49-181); PHOSPHORUS 4.4 mg/dL (2.5-4.5); POTASSIUM 4.9 mmol/L (3.6-5.0); SODIUM 141.9 mmol/L (137-145)
[2017-09-01] MEDS ORDERED: HYDROCHLOROTHIAZIDE 25 MG TABLET PO SCH (08:00)
[2017-09-01] MEDS: INSULIN GLARGINE,HUM.REC.ANLOG 300 UNIT/3 ML INSULN.PEN SUBCUT SCH (08:18)
[2017-09-01 08:45] LABS: FREE T3 3.91 pg/mL (2.77-5.27); FREE T4 (FREE THYROXINE) 1.25 ng/dL (0.78-2.19)
[2017-09-01] MEDS: CARVEDILOL 6.25 MG TABLET PO SCH (09:10)
[2017-09-01] MEDS: ENOXAPARIN SODIUM INJ 30 MG/0.3 ML DISP.SYRIN SUBCUT SCH (09:11)
[2017-09-01 09:48] VITALS: BP 129/75
[2017-09-01] MEDS ORDERED: DULOXETINE HCL 30 MG CAPSULE.DR PO SCH (10:00)
[2017-09-01] MEDS ORDERED: TAMSULOSIN HCL 0.4 MG CAP.SR.24H PO SCH (10:00)
--- NOTE | 2017-09-01 12:43 | PDOC DISCHARGE SUMMARY ---
General - Admit/Disc Date/PCP Admission Date/Primary Care Provider: 08/30/17 15:07 NO LOCALMD Discharge Date: 09/01/17 - Discharge Diagnosis (1) DM I (diabetes mellitus, type I), uncontrolled Is this a current diagnosis for this admission?: Yes Summary: Medications were adjusted this admission. Continued outpatient follow-up. (2) MELVIN (acute kidney injury) Is this a current diagnosis for this admission?: Yes Summary: Mildly improved with hydration. Nephrology followed during the hospitalization and will follow as an outpatient. (3) Fracture of 5th metatarsal Is this a current diagnosis for this admission?: Yes Summary: Transverse fracture of the fifth mid metatarsal. There is cortical irregularity involving the proximal ends of the second third and fourth metatarsal suspicious for fractures. He was fitted with an the pediatric shoe, is ambulatory without discomfort. Follow-up with orthopedics as an outpatient in 2 weeks. (4) Hyperkalemia Is this a current diagnosis for this admission?: Yes Summary: Received multiple doses of Kayexalate as well as vigorous hydration. Aldactone was stopped. Outpatient nephrology follow-up. (5) Hypertension Is this a current diagnosis for this admission?: Yes Summary: Medications were adjusted this admission. - Additional Information Resuscitation Status: Full Code Discharge Diet: Diabetic Discharge Activity: Activity As Tolerated Prescriptions: Carvedilol [Coreg 6.25 mg Tablet] 6.25 mg PO Q12 #60 tablet Duloxetine HCl [Cymbalta] 60 mg PO DAILY #30 capsule. Gabapentin [Neurontin 300 mg Capsule] 600 mg PO Q8 #180 capsule Hydrochlorothiazide [Hydrodiuril 25 mg Tablet] 25 mg PO QAM #30 tablet Insulin Glargine,Hum.rec.anlog [Lantus Insulin 100 Unit/mL] 20 unit SUBCUT PCBRKFST #1 insuln.pen Insulin Glargine,Hum.rec.anlog [Lantus] 20 units SQ PCBRKFST #1 vial Insulin Lispro [Humalog Insulin (Lispro) 100 unit/mL] 0 unit SQ .SLIDING SCALE # 1 vial MDD 2-6 units with meals Lisinopril [Prinivil 10 mg Tablet] 20 mg PO Q12 #120 tablet Tamsulosin HCl [Flomax 0.4 mg Cap.sr] 0.4 mg PO DAILY #30 cap.sr.24h Home Medications: Carvedilol [Coreg 6.25 mg Tablet] 6.25 mg PO Q12 #60 tablet 09/01/17 Duloxetine HCl [Cymbalta] 60 mg PO DAILY #30 capsule. 09/01/17 Gabapentin [Neurontin 300 mg Capsule] 600 mg PO Q8 #180 capsule 09/01/17 Hydrochlorothiazide [Hydrodiuril 25 mg Tablet] 25 mg PO QAM #30 tablet 09/01/17 Insulin Glargine,Hum.rec.anlog [Lantus Insulin 100 Unit/mL] 20 unit SUBCUT PCBRKFST #1 insuln.pen 09/01/17 Insulin Glargine,Hum.rec.anlog [Lantus] 20 units SQ PCBRKFST #1 vial 09/01/17 Insulin Lispro [Humalog Insulin (Lispro) 100 unit/mL] 0 unit SQ .SLIDING SCALE # 1 vial MDD 2-6 units with meals 09/01/17 Lisinopril [Prinivil 10 mg Tablet] 20 mg PO Q12 #120 tablet 09/01/17 Tamsulosin HCl [Flomax 0.4 mg Cap.sr] 0.4 mg PO DAILY #30 cap.sr.24h 09/01/17 History of Present Illness Patient complains of: Right foot pain and swelling History of Present Illness: BRYCE GONZALEZ is a 36 year old male with past medical history of diabetes mellitus type 1, essential hypertension, and chronic kidney disease stage 3; who presents to [facility] ED with complaints of right foot pain and swelling. He was found on xray to have a 5th metatarsal fracture. He denies any injuries to the foot. He said he has been doing alot of walking with his new job. He had basic labs drawn as well which showed his potassium to be elevated at 7.5. His bun/creatinine were elevated at 40/2.0. He denies any recent nausea, vomiting or diarrhea. He states his glucose has not been markedly elevated. He states he probably has not been drinking enough water with his new job. He is followed by the [facility] in [place]. They told him at his last visit that he would need to be referred to a budget assistant soon. He has no complaints at the present time other than the right foot pain. Hospital Course Hospital Course: He was treated with calcium gluconate, insulin, Kayexalate, and hydration. His potassium has been very slow to improve but has now come down to normal. He was seen in consultation by nephrology who will continue to follow him as an outpatient. His metatarsal fracture was treated with a hard shoe and he will follow-up with orthopedics as an outpatient. Blood sugars were initially not well controlled and his insulin was adjusted with improved control. This will require long-term follow-up. Physical Exam Vital Signs: Temp Pulse Resp BP Pulse Ox 98.5 F 92 16 129/75 H 96 09/01/17 09:46 09/01/17 09:46 09/01/17 09:46 09/01/17 09:46 09/01/17 09:46 Intake & Output 08/31/17 09/01/17 09/02/17 05:59 05:59 05:59 Intake Total 2322 3560 Output Total 500 500 Balance 1822 3060 Weight 238 lb 8.642 oz 236 lb 12.423 oz General appearance: PRESENT: no acute distress, cooperative, obese Respiratory exam: PRESENT: clear to auscultation eliezer Cardiovascular exam: PRESENT: RRR GI/Abdominal exam: PRESENT: soft Extremities exam: ABSENT: other - No edema. Right foot is mildly tender along the mid lateral aspect as expected. Neurological exam: PRESENT: alert Psychiatric exam: PRESENT: appropriate affect Skin exam: PRESENT: warm Results Laboratory Results: 08/31/17 05:06 09/01/17 05:47 08/31/17 08/31/17 09/01/17 05:06 17:00 05:47 Retic Count (auto) 0.96 Absolute Retic 0.031 Sodium 145.8 H 141.9 Potassium 5.6 H 4.9 Chloride 110 H 109 H Carbon Dioxide 21 L 22 Anion Gap 15 11 BUN 31 H 26 H Creatinine 1.65 H 1.56 H Est GFR ( Amer) 58 L > 60 Est GFR (Non-Af Amer) 48 L 51 L Glucose 143 H 151 H Calcium 9.2 8.6 Phosphorus 4.8 H 4.4 Magnesium 1.7 Iron 49.9 Albumin 3.6 3.3 L TSH Free T4 Free T3 pg/mL 09/01/17 09/01/17 05:47 05:47 Retic Count (auto) Absolute Retic Sodium Potassium Chloride Carbon Dioxide Anion Gap BUN Creatinine Est GFR ( Amer) Est GFR (Non-Af Amer) Glucose Calcium Phosphorus Magnesium Iron Albumin TSH 0.24 L Free T4 1.25 Free T3 pg/mL 3.91 08/31/17 05:06 Creatine Kinase 313 H Impressions: Foot X-Ray 08/30/17 12:17 IMPRESSION: Transverse fracture of the mid 5th metatarsal. There is cortical irregularity involving the proximal ends of the 2nd 3rd and 4th metatarsal suspicious for fractures. Clinical correlation is recommended. Other findings as noted above. Renal Ultrasound 08/31/17 00:00 IMPRESSION: NORMAL RENAL AND BLADDER ULTRASOUND. Qualifiers - * PATIENT BEING DISCHARGED WITH ANY OF THE FOLLOWING DIAGNOSIS: No
== END 2017-09-01 11:00 | disposition home or self-care (01) | DRG 641 ==
LOC: ER 11:16 → EH 15:07 → 3W 16:31
PROVIDERS: ADMIT Family Medicine; ATTEND Family Medicine
DX: E87.5 Hyperkalemia (principal); N17.9 Acute kidney failure, unspecified; E10.65 Type 1 diabetes mellitus with hyperglycemia; E10.21 Type 1 diabetes mellitus with diabetic nephropathy; E10.22 Type 1 diabetes mellitus with diabetic chronic kidney disease; E10.40 Type 1 diabetes mellitus with diabetic neuropathy, unspecified; N18.3 Chronic kidney disease, stage 3 (moderate); S92.351A Displaced fracture of fifth metatarsal bone, right foot, initial encounter for closed fracture; X58.XXXA Exposure to other specified factors, initial encounter; Y92.481 Parking lot as the place of occurrence of the external cause; I12.9 Hypertensive chronic kidney disease with stage 1 through stage 4 chronic kidney disease, or unspecified chronic kidney disease; Z87.891 Personal history of nicotine dependence; Z83.3 Family history of diabetes mellitus; Z82.49 Family history of ischemic heart disease and other diseases of the circulatory system; D63.1 Anemia in chronic kidney disease; Z79.4 Long term (current) use of insulin; Z79.899 Other long term (current) drug therapy; Z91.013 Allergy to seafood
CPT/HCPCS: 36415; 76770; 80048; 80069; 81001; 82550; 82803; 82962; 83036; 83540; 83735; 84133; 84300; 84439; 84443; 84481; 84550; 85025; 85045; 93005; 93010; 94640; 96374; 96375; 99291; J0610; J1650; J1815; J3490; J7030